=== PATIENT | female | born 1960 | race Caucasian/White ===

== ENCOUNTER 2016-02-13 20:54 | Emergency (ER) | payer OTHER ==
[~2016-02-13] VITALS: Ht 170.2 cm; Wt 71.8 kg
[~2016-02-13 20:54] MED LIST: CEFI400C PO; COLACE; CYCL10TA9 PO; FLUO20CA25 PO; LEVO100T6 PO; LITH300T2 PO; METF500T4 PO; METH750T3 PO; OXYB5TAB10 PO; OXYC1TAB24 PO; PHEN-684 PO; QUET100T69 PO; Quetiapine Fumarate PO; SIMV40TA5 PO; TRAZ-118 PO; ZLP10T PO
[2016-02-13 21:21] VITALS: BP 126/85; PULSE 71; RESP 18; O2SAT 96
--- NOTE | 2016-02-13 22:05 | ED.REPORT ---
HPI-URI / Cough / Cold Date of Service Feb 13, 2016 ED Provider: Dr. Mccarthy Pt is a 55 year old female with a hx of bronchitis, fibromyalgia and DM presenting to the ED complaining of flu and cold symptoms onset several weeks ago. Associated symptoms include pain in between shoulder blades and a cough. Denies fever. The pt was diagnosed with influenza A on January 27 and her cough has not gone away. Nursing Notes Stated Complaint: COUGH Chief Complaint: FLU/Cold Symptoms Nursing Notes Reviewed: Yes Allergies: Coded Allergies: Penicillins (Verified Allergy, Severe, 05/09/15) erythromycin base (Verified Allergy, Severe, Anaphylaxis, 05/09/15) lithium (Verified Allergy, Severe, 02/13/16) Sulfa (Sulfonamide Antibiotics) (Verified Allergy, Unknown, Anaphylaxis, 12/07/15) azithromycin (Verified Allergy, Unknown, 05/09/15) bupropion (Verified Allergy, Unknown, 05/09/15) pramipexole Di-HCl (Verified Adverse Reaction, Severe, 02/16/15) hydrocodone (Verified Adverse Reaction, Intermediate, ITCH, 04/24/15) Scheduled ([Quetiapine Fumarate]) 100 MG TABLET 400 MG PO HS Cefixime (Suprax) 400 Mg Capsule 400 MG PO BID Fluoxetine (Fluoxetine) 20 Mg Capsule 40 MG PO DAILY Levothyroxine (Levothyroxine) 100 Mcg Tablet 100 MCG PO DAILY [place] Carbonate ([place] Carbonate) 300 Mg Tablet 300 MG PO DAILY Metformin (Metformin) 500 Mg Tablet 500 MG PO BIDWM Simvastatin (Simvastatin) 40 Mg Tablet 20 MG PO HS Trazodone (Trazodone) 100 Mg Tablet 100 MG PO HS Scheduled PRN Cyclobenzaprine (Cyclobenzaprine) 10 Mg Tablet 10 MG PO TID PRN PRN Spasm Methocarbamol (Methocarbamol) 750 Mg Tablet 1,500 MG PO QID PRN PRN For Spasm Oxybutynin Chloride (Oxybutynin Chloride) 5 Mg Tablet 5 MG PO TID PRN PRN For Spasm Phenazopyridine (Pyridium) 200 Mg Tablet 200 MG PO TID PRN PRN dysuria Quetiapine Fumarate (Quetiapine Fumarate) 100 Mg Tablet 150 MG PO DAILY PRN PRN jake Zolpidem (Ambien) 10 Mg Tablet 10 MG PO HS PRN PRN For Insomnia oxyCODONE-Acetaminophen 5-325 mg (oxyCODONE-Acetaminophen 5-325 mg) 1 Each Tablet 1-2 TAB PO Q6H PRN PRN For Pain Miscellaneous Medications ([Colace]) General Time Seen by MD: 22:05 Chief Complaint Cough, non-productive Hx Obtained From: Patient Arrived By: Walk-in Onset Occurred: More than a week ago... (3 weeks) Symptom Duration: Since onset Quality: Painful Severity: Current: Mild Severity: Maximum: Moderate Recent Healthcare: No recent doctor visit, No recent hospitalization Similar Sx Previous: No Past Medical History Past Medical History bipolar II disorder suicide attempts hypotension Fibromyalgia Reports: Diabetes mellitus, Mental illness Past Surgical History bladder sling thoracotomy x3 Reports: , Hysterectomy, Tonsillectomy Family History Noncontributory Smoking History Never Smoker Social History Alcohol Use: Denies alcohol use Drug Use: Denies drug use Other Social History: Local resident Ambulatory Status Independent Review of Systems Constitutional: Denies: Fever Respiratory: Reports: Non-productive cough, Denies: Shortness of breath GI: Denies: Vomiting Complete sys rev & neg: except as marked. Musculoskeletal: Reports: Back pain Physical Exam Initial Vital Signs Vital Signs (First) Date Time Temp Pulse Resp B/P Pulse Ox O2 Delivery O2 Flow Rate FiO2 02/13/16 21:21 36.2 71 18 126/85 96 Room Air Initial VS: Reviewed Head / Eyes: Atraumatic, Normocephalic, PERRL Neck: Supple, Non-tender, Full range of motion Cardiovascular: Regular rate & rhythm, Heart sounds normal, Intact distal pulses Abdomen / GI: Soft, Non-tender, No guarding, No rebound, No distention Skin: Warm, Dry, No cyanosis Neurologic: Alert, Oriented, Nonfocal Psychiatric: Mood/affect normal, Behavior normal, Normal thought content General/Constitutional: Awake, Alert, Well appearing ENT: Airway patent, Mucous membranes moist, Pharynx NL Respiratory / Chest: Atraumatic, No respiratory distress Wheezing / Retractions: Positive: Wheezing mild (Faint wheezes bilateral) Interpretation & Diagnostics Lab Results Interpretation Test 02/13/16 23:50 02/14/16 00:00 D-Dimer < 0.5mg/L (<0.50) Hold Shah Top Tube Received (Received) Troponin T 0.010ug/L (0.0-0.011) ECG Interpretation Time: 01:36 Interpreted by: ED physician Normal ECG Interpretation: Normal rate (67), Normal sinus rhythm X-Ray Chest Interpretation Chest Xray Interpretation: Normal chest x ray unchanged from prior. Interpretation / Wet Read by: Wet read ED physician Re-Eval/Medical Decision Med Decision/Clinical Course Persistent cough since influenza a diagnosis. Pulmonary emboli seems very unlikely. Negative d-dimer. Pneumonia was ruled out based on a normal chest x- ray. No pneumothorax. [place] ruled out based on EKG and troponins. She was medicated looked and felt much better. I will place her on a course of antibiotics in the event that she is developing a post-influenza bronchitis. We will use doxycycline because it does have some MRSA coverage as well. Recommend close outpatient follow-up. Mrs. Childs does have a history of psychiatric illness. This is all been very stable. She has not had any suicidal or homicidal ideations. On my evaluation he is awake alert oriented 4. Her mental status exam was within normal. She is very pleasant. No evidence of acute psychosis. Re-Evaluation/Progress : Time of Eval: 01:42 Patient Status: Condition improved Re-Evaluation/Progress Note: Discussed plan for discharge. Pt understands and agrees with plan. Counseled Regarding: Diagnosis, Lab results, Need for follow-up, When/why to return to ED Discharge & Departure Impression: Primary Impression: Influenza Additional Impression: Bronchitis Disposition: Home Discharge Condition All VS Reviewed: Yes Condition: Improved Patient Instructions: Acute Bronchitis (ED) Additional Instructions: Doxycycline twice daily for 5 days. Take 1-2 Percocet every 6 hours as needed for pain. Drink plenty of liquids. Follow up with your primary care physician on Monday. Do not drive or drink alcohol or consume acetaminophen while taking the Percocet. Return if any problems or any worsening symptoms. Referrals: Martinez Dawkins MD (PCP) Scribe Attestation Portions of this note were transcribed by Arianna Major. I, Dr. Mccarthy personally performed the history, physical exam and medical decision-making; I reviewed and confirmed the accuracy of the information in the transcribed note. Signed by : Luz Maria Watkins, 02/13/2016 and 0142. copies to: Martinez Dawkins MD, Todd P DO Feb 13, 2016 22:05 ARIANNA MAJOR Feb 13, 2016 23:00
[2016-02-13] MEDS ORDERED: oxyCODONE-Acetamin 5-325 mg Tablet PO ONE (23:30)
[2016-02-13] MEDS ORDERED: Albuterol-Ipratropium 3 mL Inhalation Solution NEB ONE (23:30)
[2016-02-13] MEDS ORDERED: predniSONE 20 mg Tablet PO ONE (23:30)
[2016-02-13 23:56] VITALS: PULSE 80; O2SAT 97
[2016-02-14] MEDS ORDERED: _oxyCODONE/APAP 5-325 mg Tablet PO PRN (01:30)
[2016-02-14 02:53] VITALS: BP 129/84; PULSE 65; RESP 16; O2SAT 95
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
== END 2016-02-14 02:56 | disposition home or self-care (01) ==
LOC: SED 20:54
DX: J10.89 Influenza due to other identified influenza virus with other manifestations (principal); J40 Bronchitis, not specified as acute or chronic; E11.9 Type 2 diabetes mellitus without complications; M79.7 Fibromyalgia; Z79.84 Long term (current) use of oral hypoglycemic drugs; Z88.0 Allergy status to penicillin; Z88.1 Allergy status to other antibiotic agents; Z88.8 Allergy status to other drugs, medicaments and biological substances; Z88.2 Allergy status to sulfonamides; Z88.5 Allergy status to narcotic agent
CPT/HCPCS: 36415; 71020; 84484; 85379; 93005; 94640; 94664; 99285; J7620

== ENCOUNTER 2016-02-20 18:10 | Emergency (ER) | payer OTHER ==
[~2016-02-20] VITALS: Ht 170.2 cm; Wt 84.1 kg
[2016-02-20 18:20] VITALS: BP 122/79; PULSE 89; RESP 12; O2SAT 94
[2016-02-20 19:41] LABS: BASOPHILS % (AUTO) 0.4 % (0-3); EOSINOPHILS % (AUTO) 1.6 % (0-5); MONOCYTES % (AUTO) 5.9 % (4-12); Mean Corpuscular Hemoglobin 27.8 pg (27.0-35.0); Mean Corpuscular Volume 85.6 fL (81-100); NEUTROPHILS % (AUTO) 69.5 % (40-74); Platelet Count 232 bil/L (150-400)
[2016-02-20 20:00] VITALS: BP 118/58; PULSE 67; O2SAT 97
--- NOTE | 2016-02-20 20:00 | ED.REPORT ---
HPI-Abd Pain F 40 and Over Date of Service Feb 20, 2016 ED Provider: Dr. Ronaldo Mccarthy D.O. A 55 year old female with a history of diabetes, bipolar II disorder, hypotension, fibromyalgia, and previous suicide attempts presents to the ED with intermittent right-sided abdominal pain onset three days ago. She also reports vomiting (x2). She was in the ED on 02/12/15 for influenza and bronchitis and was discharged with a course of doxycycline, which she recently completed. Nursing Notes Stated Complaint: VOMITTING,WEAK,STOMACH PAIN Chief Complaint: Female Abdominal Pain Nursing Notes Reviewed: Yes Allergies: Coded Allergies: Penicillins (Verified Allergy, Severe, 05/09/15) erythromycin base (Verified Allergy, Severe, Anaphylaxis, 05/09/15) lithium (Verified Allergy, Severe, 02/13/16) Sulfa (Sulfonamide Antibiotics) (Verified Allergy, Unknown, Anaphylaxis, 12/07/15) azithromycin (Verified Allergy, Unknown, 05/09/15) bupropion (Verified Allergy, Unknown, 05/09/15) pramipexole Di-HCl (Verified Adverse Reaction, Severe, 02/16/15) hydrocodone (Verified Adverse Reaction, Intermediate, ITCH, 04/24/15) Scheduled ([Quetiapine Fumarate]) 100 MG TABLET 400 MG PO HS Cefixime (Suprax) 400 Mg Capsule 400 MG PO BID Fluoxetine (Fluoxetine) 20 Mg Capsule 40 MG PO DAILY Levothyroxine (Levothyroxine) 100 Mcg Tablet 100 MCG PO DAILY [place] Carbonate ([place] Carbonate) 300 Mg Tablet 300 MG PO DAILY Metformin (Metformin) 500 Mg Tablet 500 MG PO BIDWM Simvastatin (Simvastatin) 40 Mg Tablet 20 MG PO HS Trazodone (Trazodone) 100 Mg Tablet 100 MG PO HS Scheduled PRN Cyclobenzaprine (Cyclobenzaprine) 10 Mg Tablet 10 MG PO TID PRN PRN Spasm Methocarbamol (Methocarbamol) 750 Mg Tablet 1,500 MG PO QID PRN PRN For Spasm Oxybutynin Chloride (Oxybutynin Chloride) 5 Mg Tablet 5 MG PO TID PRN PRN For Spasm Phenazopyridine (Pyridium) 200 Mg Tablet 200 MG PO TID PRN PRN dysuria Quetiapine Fumarate (Quetiapine Fumarate) 100 Mg Tablet 150 MG PO DAILY PRN PRN jake Zolpidem (Ambien) 10 Mg Tablet 10 MG PO HS PRN PRN For Insomnia oxyCODONE-Acetaminophen 5-325 mg (oxyCODONE-Acetaminophen 5-325 mg) 1 Each Tablet 1-2 TAB PO Q6H PRN PRN For Pain Miscellaneous Medications ([Colace]) General Time Seen by MD: 20:00 Chief Complaint Abdominal pain Hx Obtained From: Patient Arrived By: Walk-in Sudden in Onset?: No Onset Occurred: 3 days ago Symptom Duration: Intermittent Progression since Onset: Gradually worsening Location: : RLQ: RUQ Quality: Painful Severity: Current: Moderate Severity: Maximum: Moderate Associated with: Reports: Vomiting, Denies: Fever Pertinent Negative: Relieved by nothing Recent Healthcare: Recent doctor visit Similar Sx Previous: No Past Medical History Past Medical History bipolar II disorder suicide attempts hypotension Fibromyalgia Reports: Diabetes mellitus, Mental illness Past Surgical History bladder sling thoracotomy x3 Reports: , Hysterectomy, Tonsillectomy Family History Noncontributory Smoking History Never Smoker Social History Alcohol Use: Denies alcohol use Drug Use: Denies drug use Other Social History: Local resident Ambulatory Status Independent Review of Systems Constitutional: Denies: Fever Respiratory: Denies: Non-productive cough, Shortness of breath GI: Reports: Abdominal pain (Right-sided ), Vomiting Complete sys rev & neg: except as marked. Neurologic: Denies: Bladder dysfunction, Bowel dysfunction Physical Exam Vital Signs Vital Signs (First) Date Time Temp Pulse Resp B/P Pulse Ox O2 Delivery O2 Flow Rate FiO2 02/20/16 18:20 36.2 89 12 122/79 94 Room Air 02/20/16 21:59 2 Initial VS: Reviewed Head / Eyes: Atraumatic, Normocephalic ENT: Conjunctiva normal, No scleral icterus Neck: Supple, Full range of motion Skin: Warm, Dry, No cyanosis Neurologic: Alert, Oriented, Nonfocal Psychiatric: Mood/affect normal, Behavior normal, Normal thought content General/Constitutional: Awake, Alert, No acute distress Respiratory / Chest: Breath sounds NL, Breath sounds = bilat, No respiratory distress Cardiovascular: Heart rate NL, Regular rhythm, Heart sounds NL Abdomen: Soft Tenderness/Guarding/Rebound: Positive: Tender RLQ... (Mild to moderate) Interpretation & Diagnostics URINE DIPSTICK 1.015 sp gravity 5 pH Otherwise negative Lab Results Interpretation Result Diagram: 02/20/16192302/20/161923 Test 02/20/16 19:04 02/20/16 19:24 02/20/16 20:24 02/20/16 22:30 Hold Shah Top Tube Received (Received) White Blood Count 11.8th/mm3 (3.8-10.1) Red Blood Count 5.28mil/mm3 (3.90-5.20) Hemoglobin 14.7g/dL (12.0-15.6) Hematocrit 45.2% (35.0-46.0) Mean Corpuscular Volume 85.6fL (81-100) Mean Corpuscular Hemoglobin 27.8pg (27.0-35.0) Mean Corpuscular Hemoglobin Concent 32.5% (32.0-37.0) Red Cell Distribution Width 13.6% (12.3-15.4) Platelet Count 232bil/L (150-400) Neutrophils (%) (Auto) 69.5% (40-74) Lymphocytes (%) (Auto) 22.3% (14-46) Monocytes (%) (Auto) 5.9% (4-12) Eosinophils (%) (Auto) 1.6% (0-5) Basophils (%) (Auto) 0.4% (0-3) Sodium Level 138mEq/L (134-144) Potassium Level 3.9mEq/L (3.5-5.2) Chloride Level 100mEq/L (97-108) Carbon Dioxide Level 21mmol/L (18-29) Blood Urea Nitrogen 15mg/dL (6-24) Creatinine 1.16mg/dL (0.57-1.00) Estimat Glomerular Filtration Rate 70mL/min (>59) Glucose Level 127mg/dL (60-99) Calcium Level 9.7mg/dL (8.5-10.1) Magnesium Level 2.0mg/dL (1.6-2.6) Total Bilirubin 0.3mg/dL (0.0-1.2) Aspartate Amino Transf (AST/SGOT) 40U/L (0-50) Alanine Aminotransferase (ALT/SGPT) 50U/L (0-32) Alkaline Phosphatase 79U/L (25-150) Total Protein 7.5g/dL (6.4-8.4) Albumin 4.1g/dL (3.4-5.0) Lipase 40U/L (13-60) Urine Color Yellow (YELLOW) Urine Appearance Clear (CLEAR,HAZY) Urine pH 6.0 (5.0-8.0) Urine Specific [place] 1.010 (1.003-1.035) Urine Protein Negativemg/dL (NEG,TRACE) Urine Glucose (UA) Negativemg/dL (NEGATIVE) Urine Ketones Negativemg/dL (NEGATIVE) Urine Occult Blood Negative (NEGATIVE) Urine Nitrite Negative (NEGATIVE) Urine Bilirubin Negative (NEGATIVE) Urine Urobilinogen Normalmg/dL (NORMAL) Urine Leukocyte Esterase Negative (NEGATIVE) Urine RBC 0-2/hpf (0-2) Urine WBC 0-5/hpf (0-5) Urine Epithelial Cells Moderate/hpf (NONE-MOD) Urine Crystals None seen (NONE SEEN) Urine Bacteria Moderate/hpf (NONE-FEW) Urine Hyaline Casts None/lpf (NONE) Urine Granular Casts None seen (NONE SEEN) Urine Waxy Casts None seen (NONE SEEN) Urine Red Blood Cell Casts None seen (NONE SEEN) Urine White Blood Cell Casts None seen (NONE SEEN) Urine Mucus Present (None Seen) Urine Trichomonas None seen (NONE SEEN) Urine Yeast None (NONE SEEN) Urinalysis Comment None Urine Culture Reflexed Indicated Troponin T 0.010ug/L (0.0-0.011) CT Abd / Pelvis Interpretation IMPRESSION: 1. No evidence of appendicitis or other definite acute intra-abdominal abnormality. 2. Hepatic steatosis. 3. Stable left adrenal nodule. Dictated by: Aubrey Wolfe M.D. on 02/20/2016 at 21:36 Study type: Abdominal CT IV contrast, Abdom CT oral contrast Interpretation / Wet Read by: Interpret - Radiologist Re-Eval/Medical Decision Source of Hx: Old records Re-Evaluation/Progress #1: Time of Eval: 22:45 Patient Status: Condition improved, Complete relief, Pain improved Re-Evaluation/Progress Note: Patient rechecked. She is feeling much better after pain medication. Re-Evaluation/Progress #2: Time of Eval: 23:23 Patient Status: Condition improved, Complete relief, Pain improved Re-Evaluation/Progress Note: Discussed with patient CT and lab results, diagnosis, and plan for discharge. Follow-up and return to the ER instructions given. Patient agrees with plan for care and all questions were addressed. Counseled Regarding: Diagnosis, Lab results, Need for follow-up, When/why to return to ED Discharge & Departure Primary Impression: Abdominal pain Abdominal location: right lower quadrant Qualified Code: R10.31 - Right lower quadrant pain Disposition: Home Discharge Condition All VS Reviewed: Yes Condition: Stable Patient Instructions: Acute Abdominal Pain (ED) Additional Instructions: The CAT scan was reassuring. No signs of appendicitis. No signs of acute surgical pathology. The cause of your pain is uncertain and needs close follow- up. Take 1-2 Percocet every 6 hours as needed for pain. Call your doctor on Monday to set up a follow-up. Do not drive or drink alcohol or consume acetaminophen while taking the Percocet. Return if any problems or any worsening symptoms. Referrals: Martinez Dawkins MD (PCP) Scribe Attestation Portions of this note were transcribed by Marielena Shrestha. I, Dr. Mccarthy, personally performed the history, physical exam, and medical decision-making; I reviewed and confirmed the accuracy of the information in the transcribed note. Signed by: Luz Maria Cobos, 02/21/2016, 00:00 copies to: Martinez Dawkins MD, Todd P DO Feb 20, 2016 20:00 MARIELENA SHRESTHA Feb 20, 2016 20:51
[2016-02-20] MEDS: 0.9% Sodium Chloride 1,000 ML IV SCH ×2 (20:42→22:01)
[2016-02-20] MEDS: HYDROmorphone 0.5 mg/0.5 mL iSecure Syringe IVPUSH PRN ×2 (20:43→21:11)
[2016-02-20] MEDS: Ondansetron 2 mg/mL 2 mL Inj IVPUSH PRN ×2 (20:43→21:11)
[2016-02-20 20:46] LABS: APPEARANCE,URINE CLEAR (CLEAR,HAZY); COLOR,URINE YELLOW (YELLOW); OCCULT BLOOD,URINE NEGATIVE (NEGATIVE); UROBILINOGEN,URINE NORMAL (NORMAL)
--- NOTE | 2016-02-20 21:37 | DRSVH ---
PROCEDURE: CT ABDOMEN AND PELVIS WITH CONTRAST ([id number]) INDICATIONS: right lower quadrant pain, vomiting TECHNIQUE: After the administration of oral and intravenous contrast, 5 mm thick sections acquired from the diap hragms to the symphysis. 5 mm thick coronal and sagittal reformats were performed. For radiation do se reduction, the following was used: automated exposure control, adjustment of mA and/or kV accordi ng to patient size. COMPARISON: [facility], CT, ABD/PELVIS W/CON (PN), 07/31/2013, 22:06. FINDINGS: Image quality: Excellent. ABDOMEN: Lung bases: There is mild scarring in the left lung base. Heart size is normal. There is mild peric ardial thickening anteriorly. Solid organs: There is hypoattenuation of the liver consistent with fatty infiltration with relative sparing along the gallbladder fossa. Gallbladder appears within normal limits. Biliary system is no n-dilated. Pancreas enhances normally. There is a small left adrenal nodule measuring up to 1.1 cm stable from the prior study. Kidneys are normal in size and enhancement, without hydronephrosis. Peritoneum and bowel: Stomach, small bowel, and colon loops are normal in caliber and wall thickness . The appendix is normal in appearance. The No free fluid or air. Nodes and vessels: No retroperitoneal or mesenteric adenopathy. Aorta and inferior vena cava are no rmal in caliber. Miscellaneous: No ventral hernias. PELVIS: Genitourinary: Bladder wall thickness is normal. The uterus is surgically absent. There is a small cyst within the left ovary measuring up to 1.8 cm. Miscellaneous: No inguinal hernias or adenopathy. Bones: No suspicious bony lesions. No vertebral body compression fractures. IMPRESSION: 1. No evidence of appendicitis or other definite acute intra-abdominal abnormality. 2. Hepatic steatosis. 3. Stable left adrenal nodule. Dictated by: Aubrey Wolfe M.D. on 02/20/2016 at 21:36 Approved by: Aubrey Wolfe M.D. on 02/20/2016 at 21:36
[2016-02-20 21:59] VITALS: BP 113/64; PULSE 67; O2SAT 97
[2016-02-20] MEDS ORDERED: _oxyCODONE/APAP 5-325 mg Tablet PO PRN (22:10)
[2016-02-20 23:27] VITALS: BP 102/51; PULSE 71; RESP 14; O2SAT 95
[2016-02-21] MEDS ORDERED: Sodium Chloride LOK Flush 10 mL Syringe IVFLUSH SCH (00:30)
== END 2016-02-20 23:29 | disposition home or self-care (01) ==
LOC: SED 18:10
DX: R10.31 Right lower quadrant pain (principal); R11.10 Vomiting, unspecified; E11.9 Type 2 diabetes mellitus without complications; F31.81 Bipolar II disorder; I95.9 Hypotension, unspecified; M79.7 Fibromyalgia; K76.0 Fatty (change of) liver, not elsewhere classified; Z88.1 Allergy status to other antibiotic agents; Z88.2 Allergy status to sulfonamides; Z88.8 Allergy status to other drugs, medicaments and biological substances; Z88.5 Allergy status to narcotic agent; Z79.84 Long term (current) use of oral hypoglycemic drugs; Z88.0 Allergy status to penicillin
CPT/HCPCS: 36415; 74177; 80053; 81000; 81025; 83690; 83735; 84484; 85025; 87086; 87088; 96361; 96374; 96375; 99285; J1170; J2405; J7030; Q9967

== ENCOUNTER 2016-03-20 15:19 | Emergency (ER) | payer OTHER ==
[~2016-03-20] VITALS: Ht 170.2 cm; Wt 84.1 kg
[2016-03-20 15:26] VITALS: BP 127/84; PULSE 84; RESP 16; O2SAT 95
[2016-03-20 17:46] VITALS: BP 120/75
--- NOTE | 2016-03-20 18:07 | ED.REPORT ---
HPI-General Illness Date of Service Mar 20, 2016 ED Provider: Grupo Mccormack MD A 55 year old female with a history of diabetes, hypertension, bipolar II disorder, fibromyalgia, and diabetic neuropathy presents to the ED with a headache onset early this morning. The patient also reports intermittent hypertension (high of 218/130 at home), with her left arm measuring higher than her right. The patient denies chest pain or vision change. Nursing Notes Stated Complaint: HIGH BLOOD PRESSURE Chief Complaint: General Complaint Nursing Notes Reviewed: Yes Allergies: Coded Allergies: Penicillins (Verified Allergy, Severe, 03/20/16) erythromycin base (Verified Allergy, Severe, Anaphylaxis, 03/20/16) lithium (Verified Allergy, Severe, 03/20/16) Sulfa (Sulfonamide Antibiotics) (Verified Allergy, Unknown, Anaphylaxis, ) azithromycin (Verified Allergy, Unknown, 03/20/16) bupropion (Verified Allergy, Unknown, 03/20/16) pramipexole Di-HCl (Verified Adverse Reaction, Severe, 03/20/16) hydrocodone (Verified Adverse Reaction, Intermediate, ITCH, 03/20/16) Scheduled ([Quetiapine Fumarate]) 100 MG TABLET 400 MG PO HS Cefixime (Suprax) 400 Mg Capsule 400 MG PO BID Fluoxetine (Fluoxetine) 20 Mg Capsule 40 MG PO DAILY Levothyroxine (Levothyroxine) 100 Mcg Tablet 100 MCG PO DAILY Lisinopril (Lisinopril) 20 Mg Tablet 20 MG PO DAILY Jane Carbonate (Jane Carbonate) 300 Mg Tablet 300 MG PO DAILY Metformin (Metformin) 500 Mg Tablet 500 MG PO BIDWM Simvastatin (Simvastatin) 40 Mg Tablet 20 MG PO HS Trazodone (Trazodone) 100 Mg Tablet 100 MG PO HS Scheduled PRN Cyclobenzaprine (Cyclobenzaprine) 10 Mg Tablet 10 MG PO TID PRN PRN Spasm Methocarbamol (Methocarbamol) 750 Mg Tablet 1,500 MG PO QID PRN PRN For Spasm Oxybutynin Chloride (Oxybutynin Chloride) 5 Mg Tablet 5 MG PO TID PRN PRN For Spasm Phenazopyridine (Pyridium) 200 Mg Tablet 200 MG PO TID PRN PRN dysuria Quetiapine Fumarate (Quetiapine Fumarate) 100 Mg Tablet 150 MG PO DAILY PRN PRN jake Zolpidem (Ambien) 10 Mg Tablet 10 MG PO HS PRN PRN For Insomnia oxyCODONE-Acetaminophen 5-325 mg (oxyCODONE-Acetaminophen 5-325 mg) 1 Each Tablet 1-2 TAB PO Q6H PRN PRN For Pain Miscellaneous Medications ([Colace]) General Time Seen by MD: 18:06 Chief Complaint Headache Hx Obtained From: Patient Arrived By: Walk-in Sudden in Onset?: Yes Onset Occurred: 9 - 12 hours ago Symptom Duration: Since onset Location: : Head Quality: Painful Severity: Current: Moderate Severity: Maximum: Moderate Associated with: Denies: Chest pain, Fever, Vision change Pertinent Negative: Relieved by nothing Context Related History: Reports Diabetes mellitus, Reports Psychiatric history Recent Healthcare: No recent doctor visit Similar Sx Previous: Yes Past Medical History Past Medical History Bipolar II disorder Suicide attempts Hypotension Hypertension Fibromyalgia Diabetic neuropathy Reports: Diabetes mellitus, Mental illness Past Surgical History bladder sling thoracotomy x3 Reports: , Hysterectomy, Tonsillectomy Family History Noncontributory Smoking History Never Smoker Social History Alcohol Use: Denies alcohol use Drug Use: Denies drug use Other Social History: Local resident Ambulatory Status Independent Review of Systems + Hypertension (high of 218/130 at home) with left arm measuring higher than right Full Review of Systems Eyes: Denies: Blurred bilateral, Visual loss bilateral Respiratory: Denies: Non-productive cough, Shortness of breath Cardiovascular: Denies: Chest pain GI: Denies: Vomiting Neurologic: Reports: Headache Complete sys rev & neg: except as marked. Physical Exam Vital Signs Vital Signs Date Time Temp Pulse Resp B/P Pulse Ox O2 Delivery O2 Flow Rate FiO2 03/20/16 18:57 36.1 84 16 120/75 95 Room Air 03/20/16 17:46 120/75 03/20/16 15:26 36.1 84 16 127/84 95 Room Air Initial VS: Reviewed Head / Eyes: Atraumatic, Normocephalic ENT: Conjunctiva normal, No scleral icterus Neck: Supple, Full range of motion Respiratory: Breath sounds normal, Clear to auscultation, No respiratory distress Cardiovascular: Regular rate & rhythm, Heart sounds normal Skin: Warm, Dry, No cyanosis Neurologic: Alert, Oriented, Nonfocal Psychiatric: Mood/affect normal, Behavior normal, Normal thought content General/Constitutional: Awake, Alert Re-Eval/Medical Decision Med Decision/Clinical Course Blood pressure has returned to normal with no specific intervention. I discussed empiric therapy which she has declined. Source of Hx: Old records Time of Eval: 18:16 Patient Status: Condition improved Re-Evaluation/Progress Note: Discussed with patient diagnosis and plan for discharge. Follow-up and return to the ER instructions given. Patient agrees with plan for care and all questions were addressed. Counseled Regarding: Diagnosis, Need for follow-up, When/why to return to ED Discharge & Departure Primary Impression: Hypertension Hypertension type: unspecified secondary hypertension Hypertension goal: unspecified goal Qualified Code: I15.9 - Secondary hypertension, unspecified Additional Impression: Headache Headache type: unspecified Headache chronicity pattern: unspecified pattern Intractability: not intractable Qualified Code: R51 - Headache Disposition: Home Discharge Condition All VS Reviewed: Yes Condition: Improved Patient Instructions: Acute Headache (ED), Chronic Hypertension (ED) Additional Instructions: Thank you for entrusting us with your care. Please take Lisinopril if you notice your blood pressure is high. Greater than 140/90. Use Tylenol or ibuprofen as needed for headache. Call your primary care provider tomorrow for a follow-up appointment. Keep a log of your blood pressures to show your doctor. Return to the ER with any new or worsening symptoms. Referrals: Martinez Dawkins MD (PCP) Scribe Attestation Portions of this note were transcribed by Marielena Shrestha. I, Dr. Mccormack, personally performed the history, physical exam, and medical decision-making; I reviewed and confirmed the accuracy of the information in the transcribed note. Signed by: Luz Maria Cobos, 03/20/2016, 21:08 copies to: Martinez Dawkins MD, Kirk H MD Mar 20, 2016 18:07 MARIELENA SHRESTHA Mar 20, 2016 18:16
[2016-03-20] MEDS ORDERED: LISI-567 PO (18:29)
[2016-03-20 18:57] VITALS: BP 120/75; PULSE 84; RESP 16; O2SAT 95
== END 2016-03-20 18:35 | disposition home or self-care (01) ==
LOC: SED 15:19
DX: I15.9 Secondary hypertension, unspecified (principal); R51 Headache; E11.40 Type 2 diabetes mellitus with diabetic neuropathy, unspecified; F31.81 Bipolar II disorder; Z79.84 Long term (current) use of oral hypoglycemic drugs; Z88.0 Allergy status to penicillin; Z88.1 Allergy status to other antibiotic agents; Z88.2 Allergy status to sulfonamides; Z88.5 Allergy status to narcotic agent; Z88.8 Allergy status to other drugs, medicaments and biological substances